=== PATIENT | female | born 1970 | race Caucasian/White ===

== ENCOUNTER 2018-01-12 09:40 | Day surgery (SDC) | payer BC ==
[~2018-01-12] VITALS: Ht 160 cm; Wt 90.7 kg
[~2018-01-12 09:40] MED LIST: CITRACAL + D E1 EACH PO; FENOFIBRIC ACID PO; FISH OIL 1,0001 EAC7 PO; FLINTSTONES WI1 EACH PO; INDERAL LA60 MG PO; IRON PO; OMEPRAZOLE40 M1 PO; PROBIOTIC1 EAC1 PO; VALTREX1000 MG PO
[2018-01-12 10:07] VITALS: BP 112/70
[2018-01-12] MEDS ORDERED: MOTRIN800 MG PO (12:37)
[2018-01-12] MEDS ORDERED: ROXICODONE5 MG PO (13:42)
[2018-01-12 14:05] VITALS: BP 156/82
[2018-01-12 14:41] VITALS: BP 147/74
== END 2018-01-12 14:55 | disposition home or self-care (01) ==
LOC: SDC 09:40
DX: N92.0 Excessive and frequent menstruation with regular cycle (principal); N84.0 Polyp of corpus uteri; E78.00 Pure hypercholesterolemia, unspecified; K21.9 Gastro-esophageal reflux disease without esophagitis; D64.9 Anemia, unspecified; Z88.0 Allergy status to penicillin
CPT/HCPCS: 88305; J0690; J1100; J1170; J1885; J2250; J2405; J3010